=== PATIENT | male | born 2000 | race Caucasian/White ===

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

== ENCOUNTER 2019-01-20 13:57 | Emergency (ER) | payer OTHER ==
[~2019-01-20] VITALS: Ht 177.8 cm; Wt 90.7 kg
[~2019-01-20 13:57] MED LIST changes: +Naprosyn500 MG PO
[2019-01-20] MEDS ORDERED: Percocet 5-3251 EACH PO (14:33)
[2019-01-20] MEDS ORDERED: Silvadene20 GM TOP (14:33)
== END 2019-01-20 15:03 | disposition home or self-care (01) ==
LOC: ER 13:57
DX: T20.00XA Burn of unspecified degree of head, face, and neck, unspecified site, initial encounter (principal); T23.001A Burn of unspecified degree of right hand, unspecified site, initial encounter; T31.0 Burns involving less than 10% of body surface; F32.9 Major depressive disorder, single episode, unspecified; Z87.891 Personal history of nicotine dependence; Z79.899 Other long term (current) drug therapy; X08.8XXA Exposure to other specified smoke, fire and flames, initial encounter
CPT/HCPCS: 16020; 90471; 90714; 96372-59; 99283-25; J1170